=== PATIENT | female | born 1970 | race Caucasian/White ===

== ENCOUNTER → 2024-01-06 11:12 | Outpatient (REF) | payer OTHER, SELFPAY | LOC: REG 11:12 | PROVIDERS: ATTENDING PHYSICIAN Nurse Practitioner Family; FAMILY PHYSICIAN Family Medicine | DX: M79.671 Pain in right foot (principal) | CPT/HCPCS: 73620 ==

== ENCOUNTER → 2024-10-05 13:41 | Outpatient (REF) | payer OTHER, SELFPAY | LOC: WDC 13:41 | PROVIDERS: ATTENDING PHYSICIAN Surgery; FAMILY PHYSICIAN Family Medicine | DX: Z12.31 Encounter for screening mammogram for malignant neoplasm of breast (principal) | CPT/HCPCS: 77063; 77067 ==

== ENCOUNTER → 2024-11-16 11:26 | Outpatient (REF) | payer OTHER, SELFPAY | LOC: HWRAD 11:26 | PROVIDERS: ATTENDING PHYSICIAN Internal Medicine Hematology & Oncology; FAMILY PHYSICIAN Family Medicine; OTHER PHYSICIAN Obstetrics & Gynecology; REFERRING PHYSICIAN Surgery | DX: Z15.01 Genetic susceptibility to malignant neoplasm of breast (principal) | CPT/HCPCS: 77080 ==

== ENCOUNTER → 2024-12-03 09:52 | Outpatient (REF) | payer OTHER, SELFPAY | LOC: MRI 3T 09:52 | PROVIDERS: ATTENDING PHYSICIAN Surgery; FAMILY PHYSICIAN Family Medicine | DX: R92.2 Inconclusive mammogram (principal); Z12.31 Encounter for screening mammogram for malignant neoplasm of breast | CPT/HCPCS: 77049; A9585 ==

== ENCOUNTER 2025-02-23 06:32 | Day surgery (SDC) | payer OTHER, SELFPAY | END 2025-02-23 14:37 | disposition home or self-care (01) | LOC: GI 06:32 | PROVIDERS: ATTENDING PHYSICIAN Specialist | DX: Z12.11 Encounter for screening for malignant neoplasm of colon (principal); K64.8 Other hemorrhoids; K63.5 Polyp of colon; Z86.0101 Personal history of adenomatous and serrated colon polyps; Z80.0 Family history of malignant neoplasm of digestive organs | CPT/HCPCS: 45380; 88305 ==

== ENCOUNTER → 2025-06-09 09:49 | Outpatient (REF) | payer OTHER, SELFPAY | LOC: MRI 3T 09:49 | PROVIDERS: ATTENDING PHYSICIAN Surgery; FAMILY PHYSICIAN Family Medicine | DX: R92.8 Other abnormal and inconclusive findings on diagnostic imaging of breast (principal) | CPT/HCPCS: 77049; A9585 ==